=== PATIENT | female | born 1985 | race Caucasian/White ===

== ENCOUNTER → 2016-07-15 | Outpatient (CLI) | payer OTHER ==
[~2016-07-15] MED LIST: ONDA4TAB46 PO
--- NOTE | 2016-07-15 11:58 | DIAGNOSTIC IMAGING REPORT ---
MRI OF THE LEFT SHOULDER WITHOUT CONTRAST CLINICAL HISTORY: Left anterior shoulder pain. COMPARISON STUDY: No previous studies for comparison. TECHNIQUE: Utilizing a 1.5 Jenny magnet, multiplanar, multiecho imaging of the left shoulder was performed without intravenous or intra-articular contrast. FINDINGS: Alignment of the left shoulder is anatomic. This study is mildly compromised by motion artifact. No marrow edema or replacement is present. There is no full-thickness rotator cuff tear. There is a suspected partial thickness tear of the insertion of supraspinatus shown on image 12 of 18. Otherwise, the cuff appears normal. The labrum is suboptimally assessed on this nonarthrogram exam but no labral tear is identified. The long head of biceps tendon is intact. No significant cartilage abnormality of the glenohumeral joint is present. There is mild AC joint arthrosis. IMPRESSION: 1. Suspected partial thickness tear of distal supraspinatus at its insertion. No full-thickness cuff tear. No tendon retraction or muscular atrophy. 2. Minimal left AC joint arthrosis. Electronically signed by: Joaquin Rodarte M.D. 07/15/2016 11:56 AM Dictated Date/Time: 07/15/2016 11:41 AM
== END | disposition home or self-care (01) ==
LOC: C.MRI 07-14 11:41
PROVIDERS: ATTEND Orthopaedic Surgery Orthopaedic Surgery of the Spine
DX: M25.512 Pain in left shoulder (principal)